=== PATIENT | male | born 1990 | race African-American/Black ===

== ENCOUNTER 2021-02-20 06:58 | Outpatient (REF) | payer BC, SELFPAY | END 2021-02-20 06:59 | disposition home or self-care (01) | LOC: HO.LAB 06:58 | PROVIDERS: Visit Provider Internal Medicine | DX: Z20.822 Contact with and (suspected) exposure to COVID-19 (principal) | CPT/HCPCS: C9803; U0003; U0005 ==

== ENCOUNTER 2021-05-12 15:56 | Emergency (ER) | payer BC, SELFPAY ==
--- NOTE | ~2021-05-12 | CT_ITS ---
EXAMINATION: CT ABDOMEN AND PELVIS WITH CONTRAST CLINICAL INFORMATION: Epigastric pain. Vomiting. Elevated lipase. COMPARISON: 12/18/2013 TECHNIQUE: Multidetector volumetric images were obtained from the superior aspect of the liver through the pubic symphysis following administration 85 mL of Omnipaque 350 intravenous contrast. Sagittal and coronal reformatted images were obtained on the technologist's workstation. Oral contrast: No This CT examination was performed using dose optimization techniques as appropriate, variously including the following: *Automated exposure control *Adjustment of mA and/or kV according to patient size (this includes techniques or standardized protocols for targeted exams where dose is matched to indication/reason for exam; i.e. extremities or head) *Use of iterative reconstruction technique DLP: 412 mGy-cm FINDINGS: LUNG BASES: The visualized lung bases are unremarkable. LIVER, GALLBLADDER, AND BILIARY TREE: The liver is normal in size, shape, and attenuation. No focal hepatic lesion or biliary ductal dilatation is present. The gallbladder is unremarkable with no evidence of radiopaque gallstones, gallbladder wall thickening, or obvious pericholecystic inflammatory changes. PANCREAS: Unremarkable. SPLEEN: Unremarkable. ADRENAL GLANDS: Unremarkable. KIDNEYS AND URETERS: The kidneys are normal in size, shape, and attenuation. No hydronephrosis, hydroureter, or calculi seen. No perinephric stranding. BLADDER: Unremarkable. GASTROINTESTINAL TRACT: The small and large bowel are unremarkable. The appendix is unremarkable. ABDOMINAL WALL: No significant hernia is appreciated. LYMPH NODES: Normal. VASCULAR: Normal caliber aorta. Circumaortic left renal vein. PELVIC VISCERA: The prostate and seminal vesicles are unremarkable. OSSEOUS STRUCTURES: Unremarkable. CT/CT abdomen pelvis w con IMPRESSION: No acute findings of the abdomen or pelvis. No obstruction. No inflammatory changes. Normal appearance of the pancreas. Fleischner guidelines were followed.
[2021-05-12 16:45] VITALS: BP 124/85; PULSE 110; RESP 18; TEMP 36.9; O2SAT 99; BMI 23.4
[2021-05-12] MEDS: Ondansetron ODT 4 MG TAB.RAPDIS TRANSLINGU (16:50)
[2021-05-12 23:39] LABS: MANUAL DIFF FLAG NO
[2021-05-12 23:40] LABS: Basophils Percent Auto 0.1 % (0-2); Hematocrit 42.5 % (42.0-52.0); Hemoglobin 14.9 g/dl (14.0-18.0); Imm Gran Abs Auto 0.07 X10*3/uL (0.00-0.03); Imm Gran Pct Auto 0.4 % (0.0-0.4); Lymphocytes Percent Auto 6.2 % (20-40); Mean Corpuscular HGB Conc 35.1 g/dl (31.0-36.0); Mean Corpuscular Hemoglobin 27.7 pg (27.0-33.0); Mean Corpuscular Volume 79.1 fL (80.0-98.0); Mean Platelet Volume 11.4 fL (9.4-12.4); Monocytes Absolute Auto 0.8 X10*3/uL (0.1-1.2); Monocytes Percent Auto 4.7 % (2-11); Neutrophils Absolute Auto 14.4 x10*3/uL (2.0-8.3); Neutrophils Percent Auto 88.6 % (45-73); Platelet Count 204 X10*3/uL (160-400); Red Blood Count 5.37 X10*6/uL (4.60-5.80); Red Cell Distribution Width 13.2 % (11.0-16.0); White Blood Count 16.2 X10*3/uL (4.8-10.8)
[2021-05-13] LABS: Alanine Aminotransferase 14 U/L (0-40); Albumin Level 5.3 g/dL (3.5-5.0); Alkaline Phosphatase 69 U/L (39-117); Anion Gap 20 (12-20); Aspartate Amino Transferase 18 U/L (5-37); Bilirubin Direct 0.4 mg/dL (0.0-0.5); Bilirubin Total 1.1 mg/dL (0.0-1.0); Blood Urea Nitrogen 18 mg/dL (9-16); Calcium 10.6 mg/dL (8.4-10.2); Carbon Dioxide 24 mmol/L (22-29); Chloride 98 mmol/L (96-108); Creatinine Clr Calc Pharmacy 90.2; Estimated Glomerular Filt Rate > 60; Glucose Random 141 mg/dL (60-115); Lipase 136 U/L (8-78); Potassium 3.6 mmol/L (3.3-5.1); Sodium 138 mmol/L (135-145); Total Protein 8.4 g/dL (6.5-8.0)
--- NOTE | 2021-05-13 00:03 | PC.NURSE ---
Addendum entered by Elizabeth Kramer 05/13/21 00:03: No relief with Zofran. Original Note: Pt vomiting continuously in Triage, large amounts of emesis noted.
[2021-05-13 00:10] VITALS: BP 154/98; PULSE 92; RESP 14; TEMP 37.2; O2SAT 99
--- NOTE | 2021-05-13 00:40 | ED.NAVMDI ---
HPI - Nausea/Vomiting/Diarrhea General Chief complaint: Nausea/Vomiting/Diarrhea Stated complaint: vomiting Time Seen by Provider: 05/13/21 00:07 Source: patient Mode of arrival: ambulatory Limitations: no limitations History of Present Illness MD elicited complaint: nausea, vomiting and abdominal pain Pertinent past history: other (gastritis vomiting daily) Onset (ago): day(s) (yesterday ) Description of vomiting: watery, bilious and blood-streaked Associated nausea: Yes Associated abdominal pain: Yes Location of pain: epigastric Pain consistency: constant Severity: severe Quality: stabbing Exacerbating factors: eating and movement Relieving factors: none Context: other (hx of severe GERD, vomits in the AM frequently takes OTC PPI, drank 2 drinks only yesterday vomiting ever since) Associated symptoms: loss of appetite, malaise, nausea/vomiting, weakness and other (noted blood in vomit no clots since vomiting so many times) Related Data Allergies Allergy/AdvReac Type Severity Reaction Status Date / Time No Known Allergies Allergy Verified 05/12/21 16:44 Review of Systems Review of Systems: Constitutional : No Weight loss, No Fever, No Chills ENT/Mouth : No sore throat, No Rhinorrhea Eyes: No Swelling, No Redness Cardiovascular : No Chest Pain, No SOB, NoEdema Respiratory : No Cough, No Sputum, No Wheezing Gastrointestinal : Positive Nausea, Positive Vomiting, no Diarrhea, positive abdominal Pain, No Hematochezia, No Melena Genitourinary : No Dysuria, No Urinary Frequency, No Hematuria, No Urgency Musculoskeletal : No joint pain, No Myalgias, No Joint Swelling Skin : No Skin Lesions, No rash Neuro : pos Weakness, No Numbness, No Dizziness, No Headache Psych : No Anxiety/Panic, No Depression Heme/Lymph: No Bruising, No Lymphadenopathy Endocrine : No Polyuria, No Polydipsia All other systems reviewed and are negative. Gastrointestinal: Gastrointestinal: Reports nausea PMFSH Past Medical History Attestation statement: The following information was validated with the patient. Medical History Gastritis GERD (gastroesophageal reflux disease) Vomiting Social History Social History (Updated 05/13/21 @ 00:44 by Juju Heath DO) Alcohol intake: current Patient Tobacco Use Status: Never used Tobacco Substance Use Type: Marijuana Advance Directives: No Physical Exam Vital Signs: Vital Signs: Last Vital Signs Temp 99.0 F 05/13/21 00:10 Pulse 93 05/13/21 02:19 Resp 18 05/13/21 02:19 BP 119/68 05/13/21 02:19 Pulse Ox 100 05/13/21 02:19 BMI result Body Mass Index 23.4 Appearance: Alert. Oriented X3. in pain active vomiting blood tinged sputum mild acute distress. Eyes: Pupils equal, round and reactive to light. ENT: Pharynx dry MM Neck: Normal inspection. Neck supple. CVS: Normal heart rate and rhythm. Pulses normal. Respiratory: No respiratory distress. Breath sounds normal. Abdomen: Soft and moderate epigastric ttp Skin: Skin warm and dry. pale skin color. Normal skin turgor. Extremities: No lower extremity edema. No calf ttp Neuro: Oriented X 3. No motor deficit. No sensory deficit. Course Course Course Narrative: no further vomiting, repeat CBC ordered, no pancreatitis - signed out to [facility] pending repeat CBC MDM - Nausea/Vomiting/Diarrhea MDM Narrative Medical decision making narrative: 30 yo male with hx of GERD and gastritis not well controlled at home and has not had endoscopy in the past has frequent issues if he eats any spicy foods or ETOH had two drinks yesterday started to vomit and now had blood streaked emesis no black stools - will obtain labs, give IVF x 2L, zofran, IV protonix, CT scan given elevated lipase - suspect hemorrhagic gastritis vs MW tear. Dispo per results and improvement Lab Data Result diagrams: 05/12/21 23:33 05/12/21 23:33 Labs: Lab Results 05/12/21 05/12/21 05/13/21 Range/Units 23:33 23:33 00:35 WBC 16.2 H (4.8-10.8) X10*3/uL RBC 5.37 (4.60-5.80) X10*6/uL Hgb 14.9 (14.0-18.0) g/dl Hct 42.5 (42.0-52.0) % MCV 79.1 L (80.0-98.0) fL MCH 27.7 (27.0-33.0) pg MCHC 35.1 (31.0-36.0) g/dl RDW 13.2 (11.0-16.0) % Plt Count 204 (160-400) X10*3/uL MPV 11.4 (9.4-12.4) fL Immature Gran % (Auto) 0.4 (0.0-0.4) % Neut % (Auto) 88.6 H (45-73) % Lymph % (Auto) 6.2 L (20-40) % Jennings % (Auto) 4.7 (2-11) % Eos % (Auto) 0.0 (0-4) % Baso % (Auto) 0.1 (0-2) % Lymph # (Auto) 1.0 L (1.2-4.9) X10*3/uL Jennings # (Auto) 0.8 (0.1-1.2) X10*3/uL Eos # (Auto) 0.0 (0.0-0.4) X10*3/uL Baso # (Auto) 0.0 (0.0-0.2) X10*3/uL Abs Immat Gran (auto) 0.07 H (0.00-0.03) X10*3/uL Absolute Neuts (auto) 14.4 H (2.0-8.3) x10*3/uL Absolute Nucleated RBC 0.000 (0.0-0.012) X10*3/uL Nucleated RBC % (auto) 0.0 (0.0-0.2) /100WBC Sodium 138 (135-145) mmol/L Potassium 3.6 (3.3-5.1) mmol/L Chloride 98 (96-108) mmol/L Carbon Dioxide 24 (22-29) mmol/L Anion Gap 20 (12-20) BUN 18 H (9-16) mg/dL Creatinine 1.06 (0.5-1.4) mg/dL Estim Creat Clear Calc 90.2 Estimated GFR > 60 Random Glucose 141 H (60-115) mg/dL Lactic Acid 1.4 (0.5-2.0) mmol/L Calcium 10.6 H (8.4-10.2) mg/dL Total Bilirubin 1.1 H (0.0-1.0) mg/dL Direct Bilirubin 0.4 (0.0-0.5) mg/dL AST 18 (5-37) U/L ALT 14 (0-40) U/L Alkaline Phosphatase 69 (39-117) U/L Total Protein 8.4 H (6.5-8.0) g/dL Albumin 5.3 H (3.5-5.0) g/dL Lipase 136 H (8-78) U/L COVID-19 ([facility]) (Negative) COVID-19 Clin Com 05/13/21 Range/Units 00:35 WBC (4.8-10.8) X10*3/uL RBC (4.60-5.80) X10*6/uL Hgb (14.0-18.0) g/dl Hct (42.0-52.0) % MCV (80.0-98.0) fL MCH (27.0-33.0) pg MCHC (31.0-36.0) g/dl RDW (11.0-16.0) % Plt Count (160-400) X10*3/uL MPV (9.4-12.4) fL Immature Gran % (Auto) (0.0-0.4) % Neut % (Auto) (45-73) % Lymph % (Auto) (20-40) % Jennings % (Auto) (2-11) % Eos % (Auto) (0-4) % Baso % (Auto) (0-2) % Lymph # (Auto) (1.2-4.9) X10*3/uL Jennings # (Auto) (0.1-1.2) X10*3/uL Eos # (Auto) (0.0-0.4) X10*3/uL Baso # (Auto) (0.0-0.2) X10*3/uL Abs Immat Gran (auto) (0.00-0.03) X10*3/uL Absolute Neuts (auto) (2.0-8.3) x10*3/uL Absolute Nucleated RBC (0.0-0.012) X10*3/uL Nucleated RBC % (auto) (0.0-0.2) /100WBC Sodium (135-145) mmol/L Potassium (3.3-5.1) mmol/L Chloride (96-108) mmol/L Carbon Dioxide (22-29) mmol/L Anion Gap (12-20) BUN (9-16) mg/dL Creatinine (0.5-1.4) mg/dL Estim Creat Clear Calc Estimated GFR Random Glucose (60-115) mg/dL Lactic Acid (0.5-2.0) mmol/L Calcium (8.4-10.2) mg/dL Total Bilirubin (0.0-1.0) mg/dL Direct Bilirubin (0.0-0.5) mg/dL AST (5-37) U/L ALT (0-40) U/L Alkaline Phosphatase (39-117) U/L Total Protein (6.5-8.0) g/dL Albumin (3.5-5.0) g/dL Lipase (8-78) U/L COVID-19 ([facility]) Negative (Negative) COVID-19 Clin Com See Note Discharge Plan Discharge Clinical Impression: Vomiting, Acute gastritis with bleeding, Leukocytosis Patient Disposition: Still a Patient
[2021-05-13] MEDS: Pantoprazole Sodium 40 MG/10 ML VIAL IVPUSH (00:42)
[2021-05-13] MEDS: ondansetron HCL 4 MG/2 ML VIAL IVPUSH (00:42)
[2021-05-13] MEDS: LORazepam 2 MG/ML VIAL 1 MG IVPUSH (00:42)
[2021-05-13] MEDS: diphenhydrAMINE HCL 50 MG/ML VIAL 25 MG IVPUSH (00:43)
[2021-05-13] MEDS: 0.9 % Sodium Chloride 1,000 ML 999 ML IVCONT ×2 (00:53)
[2021-05-13 00:56] LABS: Lactic Acid 1.4 mmol/L (0.5-2.0)
[2021-05-13 01:03] LABS: COVID-19 Test Negative (Negative)
[2021-05-13] MEDS: iohexoL 350 MG/ML 100 ML INFUS..BTL 85 ML IV (01:48)
[2021-05-13 02:19] VITALS: BP 119/68; PULSE 93; RESP 18; O2SAT 100
[2021-05-13 02:59] LABS: Hematocrit 37.9 % (42.0-52.0); Hemoglobin 12.9 g/dl (14.0-18.0); Mean Corpuscular Hemoglobin 27.3 pg (27.0-33.0); Mean Corpuscular Volume 80.1 fL (80.0-98.0); Mean Platelet Volume 11.2 fL (9.4-12.4); Platelet Count 161 X10*3/uL (160-400); Red Blood Count 4.73 X10*6/uL (4.60-5.80); Red Cell Distribution Width 13.3 % (11.0-16.0); White Blood Count 14.6 X10*3/uL (4.8-10.8)
[2021-05-13 04:16] VITALS: BP 129/85; PULSE 87; RESP 18; O2SAT 97
--- NOTE | 2021-05-13 04:22 | PC.NURSE ---
Pt assisted into room 4, ambulating with a steady gait. IV established, pt assisted into POC awaiting primary MD chávez.
--- NOTE | 2021-05-13 05:01 | PC.NURSE ---
Repeat labs obtained and sent. Pt sleeping in bed @ this time. VSS.
[2021-05-13 05:03] LABS: Basophils Percent Auto 0.1 % (0-2); Hematocrit 38.5 % (42.0-52.0); Hemoglobin 13.1 g/dl (14.0-18.0); Imm Gran Abs Auto 0.05 X10*3/uL (0.00-0.03); Imm Gran Pct Auto 0.3 % (0.0-0.4); Lymphocytes Absolute Auto 1.5 X10*3/uL (1.2-4.9); Lymphocytes Percent Auto 10.3 % (20-40); MANUAL DIFF FLAG NO; Mean Corpuscular Hemoglobin 27.3 pg (27.0-33.0); Mean Corpuscular Volume 80.4 fL (80.0-98.0); Mean Platelet Volume 11.2 fL (9.4-12.4); Monocytes Percent Auto 6.6 % (2-11); Neutrophils Absolute Auto 11.9 x10*3/uL (2.0-8.3); Neutrophils Percent Auto 82.7 % (45-73); Platelet Count 176 X10*3/uL (160-400); Red Blood Count 4.79 X10*6/uL (4.60-5.80); Red Cell Distribution Width 13.3 % (11.0-16.0); White Blood Count 14.3 X10*3/uL (4.8-10.8)
[2021-05-13 05:53] VITALS: BP 135/89; PULSE 102; RESP 18; TEMP 37; O2SAT 99
== END 2021-05-13 06:03 | disposition home or self-care (01) ==
PROVIDERS: Student in an Organized Health Care Education/Training Program; Emergency Provider Emergency Medicine
DX: K29.01 Acute gastritis with bleeding (principal); R11.2 Nausea with vomiting, unspecified; D72.829 Elevated white blood cell count, unspecified; K21.9 Gastro-esophageal reflux disease without esophagitis; F12.90 Cannabis use, unspecified, uncomplicated; Z20.822 Contact with and (suspected) exposure to COVID-19
CPT/HCPCS: 36415; 74177; 80048; 80076; 83605; 83690; 85025; 85027; 87635; 96361; 96374; 96375; 99284; J1200; J2060; J2405; Q9967

== ENCOUNTER → 2021-05-14 08:26 | Outpatient (BNVA) | payer BC, SELFPAY | PROVIDERS: Visit Provider Nurse Practitioner Family | DX: K21.9 Gastro-esophageal reflux disease without esophagitis (principal); R11.2 Nausea with vomiting, unspecified; K85.90 Acute pancreatitis without necrosis or infection, unspecified; K85.20 Alcohol induced acute pancreatitis without necrosis or infection; R19.7 Diarrhea, unspecified | CPT/HCPCS: 99202 ==

== ENCOUNTER 2021-05-14 16:13 | Outpatient (REF) | payer BC, SELFPAY ==
[2021-05-15 11:30] LABS: H Pylori Breath Test Negative (Negative)
== END 2021-05-14 16:14 | disposition home or self-care (01) ==
LOC: HO.LNP 16:13
PROVIDERS: Visit Provider Nurse Practitioner Family
DX: K29.71 Gastritis, unspecified, with bleeding (principal); R11.10 Vomiting, unspecified
CPT/HCPCS: 83013

== ENCOUNTER 2021-05-16 13:48 | Day surgery (SDC) | payer BC, SELFPAY ==
--- NOTE | 2021-05-15 10:44 | HO.ANESPROP2 ---
Documented by User: Dione Bass NP 05/15/21 10:45 HPI - Anesthesia Eval Consult details Narrative: 30yo M for Upper Endoscopy [facility] Past Medical History Medical History Gastritis GERD (gastroesophageal reflux disease) Vomiting Social History Social History Alcohol intake: current Patient Tobacco Use Status: Never used Tobacco Second Hand Smoke Exposure: No Use of substances other than those prescribed or required for medical reasons: Yes Substance Use Type: Marijuana Substance Use Frequency: Daily Are you DNR?: No Advance Directives: No Advance Directives Information Provided: Yes Advance Directives on File: No Meds Allergies Allergy/AdvReac Type Severity Reaction Status Date / Time No Known Allergies Allergy Verified 05/14/21 08:32 Exam Exam Date and Time: May 15, 2021 1044 Pertinent Lab Results Pertinent Lab Results: Laboratory Tests 05/12/21 05/13/21 23:33 04:59 WBC 14.3 H Hgb 13.1 L Hct 38.5 L Plt Count 176 Sodium 138 Potassium 3.6 Chloride 98 Carbon Dioxide 24 BUN 18 H Creatinine 1.06 Assessment and Plan Assessment Anesthesia Assessment: Chart Reviewed Documented by User: Marylin Hamm MD 05/16/21 14:17 [facility] Past Medical History Medical History Gastritis GERD (gastroesophageal reflux disease) Vomiting Functional capacity: independent ambulation Family History Family history of problems with anesthesia: No Surgical History History of Problems with Anesthesia: No Social History Social History Alcohol intake: current Patient Tobacco Use Status: Never used Tobacco Second Hand Smoke Exposure: No Use of substances other than those prescribed or required for medical reasons: Yes Substance Use Type: Marijuana Substance Use Frequency: Daily Are you DNR?: No Advance Directives: No Advance Directives Information Provided: Yes Advance Directives on File: No Meds Allergies Allergy/AdvReac Type Severity Reaction Status Date / Time No Known Allergies Allergy Verified 05/14/21 08:32 Exam Airway Mallampati Class: II TM Dist: >3cm Neck ROM: Full Heart: RRR Lungs: CTA Assessment and Plan Final Anesthetic Review Family History of Problems with Anesthesia: No History of Problems with Anesthesia: No ASA Class: II Final Preanesthetic Review: No Changes in Pt Med Stat, Meds/Allgs Chart Reviewed, Consent Obtained/Reviewed and Anes Risks/Benef Reviewed Patient Risk: Low Procedure Risk: Low Anesthetic Plan Anesthetic Plan: MAC: Disposition: Standard PACU
[2021-05-16 14:05] VITALS: BMI 23.1
--- NOTE | 2021-05-16 14:12 | MHC.SHP ---
Pre-Procedural Eval Section A Date of Service: 05/16/21 Section B Chief Complaint: acute pancreatitis,reflux disease Relevant Family History (Specify if Yes): No Relevant Social History: Other (specify) (THC use) Present Medications: see Short Stay Collaborative assessment Medical History: Significant History (H/O pyloroplasty H/O vagotomy History of esophagogastroduodenoscopy (EGD) Hx of arthroscopic knee surgery Hx of cholecystectomy Hx of colonoscopy Hx of hysterectomy) History of Previous Operations: No relevant previous surgery Allergies: Allergies Allergy/AdvReac Type Severity Reaction Status Date / Time No Known Allergies Allergy Verified 05/14/21 08:32 Review of Systems Sugical H&P ROS: Negative: Constitution, Cardiovascular, Respiratory, Neurological, Psychiatric, Hem-Onc, Allergic/Immunologic, Gastrointestinal, Genitourinary, Musculoskeletal, Integumentary, Endocrine and Eyes/Ears/Nose/Throat Exam Surgical H&P Exam: Normal: HEENT, Normal: Heart, Normal: Lungs, Normal: Extremities, Normal: Abdomen, Normal: Skin and Normal: Neurological Plan Diagnosis/Plan: Unchanged I have reviewed the history and physical and performed a pertinent physical examination on my patient. No changes have occurred unless specified.
[2021-05-16 14:17] VITALS: BP 154/98; PULSE 72; RESP 18; TEMP 36.9; O2SAT 98
[2021-05-16] MEDS: Lactated Ringers 1,000 ML 100 ML IVCONT (14:32)
--- NOTE | 2021-05-16 15:52 | PM.OP ---
Brief Operative Note Date of Service: 05/16/21 Pre-op diagnosis: epigastric pain Post-op diagnosis: same Procedure: see op note Surgeon: Sarita Barrera MD Anesthesia: MAC Was an Learning Support Services Director used for this Procedure?: No Estimated blood loss (mL): 0 Condition: stable Disposition: PACU
--- NOTE | 2021-05-16 15:52 | W.PM.OPN ---
Operative Note Operative Note Date of Service: 05/16/21 Narrative: Procedure Description: EGD FLEXIBLE TRANSORAL UPPER GASTROINTESTINAL ENDOSCOPY UPPER ENDOSCOPY Consent: Indications for the procedure and potential complications of bleeding, perforation, reaction to medications and missed diagnosis were discussed with the patient and informed consent was obtained. Instrument: Olympus GIF H 190 J mid size upper endoscope Monitoring: Vital signs and clinical assessment, continuous EKG monitoring, Pulse oximetry, Carbon Dioxide monitoring and blood pressure monitoring were done throughout the procedure. Procedure: The patient was placed in the left lateral decubitis position and pre-procedure medications were administered and a bite block was placed. The endoscope was inserted into the mouth and advanced under direct vision to the third part of duodenum. A careful inspection was made as the upper endoscope was withdrawn including a retroflexed examination of the proximal stomach; Findings and interventions are described below. Findings: Larynx:normal Esophagus: GE junction at 40 cm, diaphragm hiatus at 40 cm, LA grade D esophagitis noted with erosions and streaky erythema in distal esophagus with macerated tissue Stomach: Patchy gastric erythema. Biopsies were obtained. Grade 2 flap valve on retroflexed examination of the cardia. Duodenum: Normal bulb and descending duodenum, bx taken Intervention: Biopsies as noted above Impression/Findings: erosive esophagitis, LA grade D PLAN: omeprazole 40 mg bID carafate for 4 weeks repeat EGD in 3-6 months
--- NOTE | 2021-05-16 16:02 | HO.POSTANES ---
Post Anesthesia Evaluation Post Anesthesia Evaluation Vital Signs: Vital Signs Temp Pulse Resp BP Pulse Ox 05/16/21 14:17 98.5 F 72 18 154/98 H 98 Anesthesia: Monitored Mental Status: Awake Pain Control: Satisfactory Nausea/Vomiting: None Hydration: Adequate Anesthesia-Related Issues: No Anes. Related Issues
[2021-05-16 16:06] VITALS: BP 139/93; PULSE 113; RESP 16; TEMP 36.6; O2SAT 97
[2021-05-16 16:21] VITALS: BP 145/101; PULSE 71; RESP 16; TEMP 36.2; O2SAT 100
== END 2021-05-16 16:45 | disposition home or self-care (01) ==
PROVIDERS: Visit Provider Internal Medicine Gastroenterology
PROC: 0DJ08ZZ Inspection of Upper Intestinal Tract, Via Natural or Artificial Opening Endoscopic (ICD-10-PCS; CPT 43235; principal; 2021-05-16 15:00)
DX: K85.90 Acute pancreatitis without necrosis or infection, unspecified (principal); K21.9 Gastro-esophageal reflux disease without esophagitis; K20.80 Other esophagitis without bleeding; K29.50 Unspecified chronic gastritis without bleeding; D72.829 Elevated white blood cell count, unspecified; K44.9 Diaphragmatic hernia without obstruction or gangrene; Z90.49 Acquired absence of other specified parts of digestive tract; F12.90 Cannabis use, unspecified, uncomplicated
CPT/HCPCS: 43239; 88305; 88342

== ENCOUNTER → 2021-05-28 15:05 | Outpatient (BNVA) | payer BC, SELFPAY | PROVIDERS: PCP Nurse Practitioner Family; Visit Provider Nurse Practitioner Family | DX: Z13.89 Encounter for screening for other disorder (principal) ==

== ENCOUNTER 2021-07-06 09:35 | Outpatient (REF) | payer BC, SELFPAY ==
[2021-07-06 10:45] LABS: Alanine Aminotransferase 23 U/L (0-40); Albumin Level 4.5 g/dL (3.5-5.0); Alkaline Phosphatase 62 U/L (39-117); Anion Gap 13 (12-20); Aspartate Amino Transferase 20 U/L (5-37); Bilirubin Total 0.5 mg/dL (0.0-1.0); Blood Urea Nitrogen 9 mg/dL (9-16); Calcium 9.8 mg/dL (8.4-10.2); Carbon Dioxide 25 mmol/L (22-29); Chloride 106 mmol/L (96-108); Estimated Glomerular Filt Rate > 60; Glucose Fasting 92 mg/dL (60-99); Potassium 4.6 mmol/L (3.3-5.1); Sodium 139 mmol/L (135-145); Total Protein 7.3 g/dL (6.5-8.0)
[2021-07-06 11:08] LABS: TSH reflex Free T4 1.96 uIU/mL (0.32-4.0)
[2021-07-08 08:20] LABS: Folate 12.5 ng/mL (> or = 4.0); Vitamin B12 284 pg/mL (200-900)
== END 2021-07-06 09:36 | disposition home or self-care (01) ==
LOC: HO.LAB 09:35
PROVIDERS: PCP Nurse Practitioner Family; Visit Provider Nurse Practitioner Family
DX: Z13.29 Encounter for screening for other suspected endocrine disorder (principal); K21.9 Gastro-esophageal reflux disease without esophagitis
CPT/HCPCS: 36415; 80053; 82306; 82607; 82746; 84443

== ENCOUNTER 2021-09-24 16:00 | Outpatient (RCR) | payer BC, SELFPAY ==
--- NOTE | 2021-09-06 15:37 | MHC.PT.EP ---
[facility] [place] Office [place] Office [place] Office [address] Jarvis Gaines [address] [phone] F: [phone] F: [phone] F: [phone] F: [phone] Physical Therapy Plan of Care Date of Evaluation: Date of Surgery: N/A Diagnosis: low back pain (RC) Assessment: pt is a 30 y/o male w/ signs and symptoms consistent of SI dysfunction. pt presents to physical therapy with pain, decreased range of motion, decreased strength, impaired functional mobility, impaired postural awareness, and gait deviations. pt is a good candidate for skilled PT due to age, potential remediation of impairments, typical disease/condition progression and prognosis, comorbidities, and motivation. pt would benefit from tailored strengthening and stretching exercise program, functional training, gait training, postural re-training, neuromuscular re-education, modalities as needed for pain, equipment safety demonstration. Frequency and Duration: The patient will be seen 2x/wk for 5 wks Short Term Goals: pt will be I w/ HEP to promote self-management of condition. pt will demo proper sitting posture w/ lumbar roll to promote neutral spine w/ seated ADLs. Usp Goals: pt will improve lumbar flexion by 20% to improve ease w/ lower body dressing. pt will demo proper lifting mechanics of 25# x5 reps w/o verbal cueing to promote return to functional lifting. Treatment Plan: Modalities to reduce pain, spasms and effusion. Manual therapy to restore motion and function. Therapeutic exercise to improve strength and flexibility. Neuromuscular re-education for posture and balance. Therapeutic activities to return to functional activities of daily living. Electronically signed by: Michelle Jaeger PT, DPT Please sign and return to therapist. Thank you for your referral.
== END 2021-10-01 16:46 | disposition home or self-care (01) ==
LOC: HO.PT 16:00
PROVIDERS: PCP Nurse Practitioner Family; Visit Provider Nurse Practitioner Family
DX: M54.50 Low back pain, unspecified (principal)
CPT/HCPCS: 97110; 97112; 97162

== ENCOUNTER → 2022-02-18 13:14 | Outpatient (BNVA) | payer BC, SELFPAY | PROVIDERS: PCP Nurse Practitioner Family; Visit Provider Nurse Practitioner Family | DX: K21.9 Gastro-esophageal reflux disease without esophagitis (principal) ==

== ENCOUNTER 2022-03-27 10:49 | Day surgery (SDC) | payer BC, SELFPAY ==
[2022-03-21 12:14] VITALS: BMI 25.0
--- NOTE | 2022-03-27 11:56 | MHC.SHP ---
Pre-Procedural Eval Section A Date of Service: 03/27/22 Section B Chief Complaint: reflux Relevant Family History (Specify if Yes): No Relevant Social History: Other (specify) (THC) Present Medications: see Short Stay Collaborative assessment Medical History: Significant History (Gastritis GERD (gastroesophageal reflux disease) Vomiting) History of Previous Operations: No relevant previous surgery Allergies: Allergies Allergy/AdvReac Type Severity Reaction Status Date / Time No Known Allergies Allergy Verified 02/18/22 13:23 Review of Systems Sugical H&P ROS: Negative: Constitution, Cardiovascular, Respiratory, Neurological, Psychiatric, Hem-Onc, Allergic/Immunologic, Gastrointestinal, Genitourinary, Musculoskeletal, Integumentary, Endocrine and Eyes/Ears/Nose/Throat Exam Surgical H&P Exam: Normal: HEENT, Normal: Heart, Normal: Lungs, Normal: Extremities, Normal: Abdomen, Normal: Skin and Normal: Neurological Plan Diagnosis/Plan: Unchanged I have reviewed the history and physical and performed a pertinent physical examination on my patient. No changes have occurred unless specified. Time Spent With Patient Time: Total time managing care of this patient today ____ minutes.
[2022-03-27 12:09] VITALS: BP 130/87; PULSE 83; RESP 16; TEMP 36.8; O2SAT 99
[2022-03-27] MEDS: Lactated Ringers 1,000 ML 50 ML IVCONT (12:16)
--- NOTE | 2022-03-27 12:45 | HO.ANESPROP2 ---
HPI - Anesthesia Eval Consult details Narrative: egd [facility] Active Problems Active Problems: All Active Problems (Updated 03/21/22 @ 12:00 by Nava Moise RN) Gastroesophageal reflux disease (Acute) Screening for hypothyroidism (Acute) Screening for diabetes mellitus (Acute) Encounter to establish care (Acute) Low vitamin D level (Acute) Physical exam (Acute) Low back pain (Acute) Nausea and vomiting (Acute) Past Medical History Medical History (Updated 03/21/22 @ 12:00 by Nava Moise RN) Gastritis GERD (gastroesophageal reflux disease) History of COVID-19 Vomiting Family History Family History Father No problems noted. Mother GERD (gastroesophageal reflux disease) Family history of problems with anesthesia: No Surgical History Surgical History History of esophagogastroduodenoscopy (EGD) History of Problems with Anesthesia: No Social History Social History Housing: Apartment Alcohol intake: current Alcohol intake frequency: does not drink Patient Tobacco Use Status: Never used Tobacco e-Cigarette/Vaping Use: Former Use Second Hand Smoke Exposure: No Use of substances other than those prescribed or required for medical reasons: Yes Substance Use Type: Marijuana Substance Use Frequency: Occasionally Are you DNR?: No Advance Directives: No Advance Directives Information Provided: Yes Advance Directives on File: No Current occupational status: employed Cognitive needs: No Hearing needs: No Vision needs: No Meds Allergies Allergy/AdvReac Type Severity Reaction Status Date / Time No Known Allergies Allergy Verified 02/18/22 13:23 Active Medications: Current Medications Lactated Ringer's (Lr) 1,000 mls @ 50 mls/hr IVCONT .Q20H LIAM Last Admin: 03/27/22 12:16 Dose: 50 mls/hr Exam Exam Date and Time: March 27, 2022 1245 Height,Weight and Vital Signs: Height 5 ft 6 in Weight 70.2 kg Last Vital Signs Temp 98.2 F 03/27/22 12:09 Pulse 83 03/27/22 12:09 Resp 16 03/27/22 12:09 BP 130/87 03/27/22 12:09 Pulse Ox 99 03/27/22 12:09 O2 Del Method 03/27/22 12:09 Airway Mallampati Class: II TM Dist: >3cm Neck ROM: Full Heart: rrr Lungs: cta Assessment and Plan Final Anesthetic Review Family History of Problems with Anesthesia: No History of Problems with Anesthesia: No ASA Class: II Final Preanesthetic Review: No Changes in Pt Med Stat, Meds/Allgs Chart Reviewed, Consent Obtained/Reviewed and Anes Risks/Benef Reviewed Patient Risk: Low Procedure Risk: Low Anesthetic Plan Anesthetic Plan: Agree w/ Assess. and Plan Disposition: Standard PACU
--- NOTE | 2022-03-27 13:11 | W.PM.OPN ---
Operative Note Operative Note Date of Service: 03/27/22 Narrative: Procedure Description: EGD Indication: gerd Anesthesia: MAC FLEXIBLE TRANSORAL UPPER GASTROINTESTINAL ENDOSCOPY UPPER ENDOSCOPY Consent: Indications for the procedure and potential complications of bleeding, perforation, reaction to medications and missed diagnosis were discussed with the patient and informed consent was obtained. Instrument: Olympus GIF H 190 J mid size upper endoscope Monitoring: Vital signs and clinical assessment, continuous EKG monitoring, Pulse oximetry, Carbon Dioxide monitoring and blood pressure monitoring were done throughout the procedure. Procedure: The patient was placed in the left lateral decubitis position and pre-procedure medications were administered and a bite block was placed. The endoscope was inserted into the mouth and advanced under direct vision to the third part of duodenum. A careful inspection was made as the upper endoscope was withdrawn including a retroflexed examination of the proximal stomach; Findings and interventions are described below. Findings: Larynx:normal Esophagus: GE junction at 35 cm, diaphragm hiatus at 38 cm, consistent with 3 cm sliding hiatal hernia, bx taken from GEJ, proximal and distal esophagus Stomach: Patchy gastric erythema. Biopsies were obtained. Grade 2 flap valve on retroflexed examination of the cardia. Duodenum: Normal bulb and descending duodenum, bx taken Intervention: Biopsies as noted above Impression/Findings: gastritis hiatal hernia PLAN: refluc precautions cont with PPI as helps if H pylori pos then treat
[2022-03-27 13:48] VITALS: BP 132/85; PULSE 111; RESP 16; TEMP 36.6; O2SAT 98
[2022-03-27 14:03] VITALS: BP 134/86; PULSE 78; RESP 16; O2SAT 98
[2022-03-27 14:18] VITALS: BP 136/92; PULSE 75; RESP 16; TEMP 36.8; O2SAT 100
[2022-03-27 14:33] VITALS: BP 142/91; PULSE 77; RESP 18; TEMP 36.4; O2SAT 97
[2022-03-27] MEDS: Mag&Al/Sim/Diphenhyd/Lidocaine 10 ML ORAL.SUSP PO (14:47)
== END 2022-03-27 15:02 | disposition home or self-care (01) ==
PROVIDERS: PCP Physician Assistant; Visit Provider Internal Medicine Gastroenterology
PROC: 0DJ08ZZ Inspection of Upper Intestinal Tract, Via Natural or Artificial Opening Endoscopic (ICD-10-PCS; CPT 43235; principal; 2022-03-27 11:50)
DX: K21.9 Gastro-esophageal reflux disease without esophagitis (principal); K44.9 Diaphragmatic hernia without obstruction or gangrene; K29.70 Gastritis, unspecified, without bleeding
CPT/HCPCS: 43239; 88305; 88342

== ENCOUNTER 2023-05-30 14:04 | Emergency (ER) | payer BC, MEDICAID, SELFPAY ==
[2023-05-30 14:36] VITALS: BP 157/99; PULSE 95; RESP 18; TEMP 37; O2SAT 99; BMI 22.9
--- NOTE | 2023-05-30 14:36 | ED.NAVMDI ---
HPI - Nausea/Vomiting/Diarrhea General Chief complaint: Abdominal Pain Stated complaint: Vomiting Time Seen by Provider: 05/30/23 17:46 Source: patient Mode of arrival: ambulatory Limitations: no limitations History of Present Illness HPI Narrative: 32 yo male presenting to the ER for evaluation of N/V/D and weakness for the last 5 days. No abdominal pain just soreness. No fevers. No known sick contacts. He reports upset stomach and some abdominal cramping before diarrhea but no focal abdominal pains. MD elicited complaint: nausea, vomiting and diarrhea Onset (ago): day(s) Description of vomiting: bilious Description of diarrhea: semi-solid Associated nausea: Yes Associated abdominal pain: No Location of pain: none Radiation: diffuse Pain consistency: intermittent Severity: mild Quality: cramping Exacerbating factors: eating Relieving factors: none Associated symptoms: myalgias, headaches, loss of appetite, malaise and nausea/vomiting Related Data Previous Rx's ?Medication ?Instructions ?Recorded omeprazole 40 mg capsule,delayed 40 mg PO BID #60 caps 06/10/22 release baclofen 10 mg tablet 10 mg PO DAILY 14 days #14 tabs 08/07/22 omeprazole 40 mg capsule,delayed 40 mg PO DAILY #14 caps 05/30/23 release ondansetron 4 mg disintegrating 4 mg PO Q8H PRN nausea and 05/30/23 tablet vomiting #7 tabs Allergies Allergy/AdvReac Type Severity Reaction Status Date / Time No Known Allergies Allergy Verified 05/30/23 14:38 Review of Systems Review of Systems: Yes all other systems are reviewed and are negative Gastrointestinal: Gastrointestinal: Reports nausea PMFSH Past Medical History Medical History Gastritis GERD (gastroesophageal reflux disease) History of COVID-19 Vomiting Surgical History History of esophagogastroduodenoscopy (EGD) Family History Family History Father No problems noted. Mother GERD (gastroesophageal reflux disease) Social History Social History (Updated 08/07/22 @ 13:37 by Sidney Roman PA-C) Housing: Apartment Alcohol intake: current Alcohol intake frequency: holidays/special occasions only Patient Tobacco Use Status: Never used Tobacco e-Cigarette/Vaping Use: Former Use Second Hand Smoke Exposure: No Substance Use Type: Marijuana Advance Directives: No Advance Directives Information Provided: Yes Current occupational status: employed Current occupation: [employer] Cognitive needs: No Hearing needs: No Vision needs: No Physical Exam Vital Signs: Vital Signs: Last Vital Signs Temp 96.6 F L 05/30/23 19:35 Pulse 81 05/30/23 19:35 Resp 18 05/30/23 19:35 BP 150/98 H 05/30/23 19:35 Pulse Ox 100 05/30/23 19:35 O2 Del Method Room Air 05/30/23 18:26 BMI result Body Mass Index 22.9 Appearance: Alert. Oriented X3. Pale Head: normocephalic, atraumatic. Eyes: Pupils equal, round and reactive to light. ENT: Pharynx normal. No tonsillar swelling or exudate. Neck: Normal inspection. Neck supple. CVS: Normal heart rate and rhythm. Pulses normal. Respiratory: No respiratory distress. Breath sounds normal. Abdomen: Soft and nontender. hyperactive +BS x4 Skin: Skin warm and dry. Normal skin color. Normal skin turgor. No rashes. Extremities: No lower extremity edema. No joint swelling. Neuro/psych: Oriented X 3. No motor deficit. No sensory deficit. CN II-XII intact. Normal speech and cognition. Course Course Course Narrative: This is a Rapid Medical Examination (RME) in triage, full HPI, ROS, assessment and plan per primary provider in the Main ED. 32 y/o male with GERD presents today for N/V/D and upper/ epigastric cramping abdominal pain for 5 days. No relief with omeprazole. Last vomited prior to arrival, bilious. Has episode of diarrhea yesterday with cramping pain. Overall, feeling fatigued weakness. In triage, appears uncomfortable and pale. Plan: JUAN DANIEL zofrmichael, labs, viral swabs Medications Administered Discontinued Medications Generic Name Dose Route Start Last Admin Trade Name Freq PRN Reason Stop Dose Admin Ondansetron HCl 4 mg 05/30/23 14:40 05/30/23 14:44 Ondansetron Odt 4 Mg Tab.Abraham GOMEZINGU 05/30/23 14:41 4 mg ONCE ONE Administration Ondansetron HCl 4 mg 05/30/23 19:31 05/30/23 19:33 Ondansetron Odt 4 Mg Tab.Abraham EPSTEIN 05/30/23 19:32 4 mg ONCE ONE Administration Medical Decision Making Medical Decision Making [facility] Narrative: 32 yo male presenting with several days of N/V/D, nonbloody vomitus and stools. No abdominal tenderness on examination. Lab workup is reassuring. No diarrhea since yesterday. Doubt acute bacterial infection such as C diff colitis. He was given SL zofran from triage and then able to tolerate pravin gustavo and crackers. Patient remained in the waiting room for several hours. He was reassessed. His VS remained stable and repeat abdominal exadmination revealed a nontender and nondistended abdomen. His most likely dx is acute gastroenteritis. He would like to go home. Will send home with zofran and PPI per request. He was given strict return precautions, comfortable w/ d/c home. Differential Diagnosis Differential Diagnoses: The differential diagnosis associated with the presentation includes gastroenteritis, pancreatitis, cholecystitis, GERD, gastritis, colitis Admission/Observation Consideration of admission/observation: Escalation of care including admission/observation considered Lab Data [facility] Lab Attestation statement: I reviewed the patient's lab results. no leukocytosis no significant electrolyte abnormality to suggest dehydration 05/30/23 15:02 05/30/23 15:02 Labs: Lab Results 05/30/23 05/30/23 Range/Units 15:02 18:17 WBC 9.5 (4.8-10.8) X10*3/uL RBC 5.65 (4.60-5.80) X10*6/uL Hgb 15.3 (14.0-18.0) g/dl Hct 43.0 (42.0-52.0) % MCV 76.1 L (80.0-98.0) fL MCH 27.1 (27.0-33.0) pg MCHC 35.6 (31.0-36.0) g/dl RDW 12.9 (11.0-16.0) % Plt Count 208 (160-400) X10*3/uL MPV 10.9 (9.4-12.4) fL Immature Gran % (Auto) 0.2 (0.0-0.4) % Neut % (Auto) 82.8 H (45-73) % Lymph % (Auto) 12.8 L (20-40) % Lares % (Auto) 3.9 (2-11) % Eos % (Auto) 0.1 (0-4) % Baso % (Auto) 0.2 (0-2) % Lymph # (Auto) 1.2 (1.2-4.9) X10*3/uL Lares # (Auto) 0.4 (0.1-1.2) X10*3/uL Eos # (Auto) 0.0 (0.0-0.4) X10*3/uL Baso # (Auto) 0.0 (0.0-0.2) X10*3/uL Abs Immat Gran (auto) 0.02 (0.00-0.03) X10*3/uL Absolute Neuts (auto) 7.8 (2.0-8.3) x10*3/uL Absolute Nucleated RBC 0.000 (0.0-0.012) X10*3/uL Nucleated RBC % (auto) 0.0 (0.0-0.2) /100WBC Sodium 137 (135-145) mmol/L Potassium 3.7 (3.3-5.1) mmol/L Chloride 104 (96-108) mmol/L Carbon Dioxide 26 (22-29) mmol/L Anion Gap 11 L (12-20) BUN 9 (9-16) mg/dL Creatinine 0.92 (0.5-1.4) mg/dL Estim Creat Clear Calc 102.0 Estimated GFR > 60 Random Glucose 108 (60-115) mg/dL Calcium 10.0 (8.4-10.2) mg/dL Magnesium 1.7 (1.6-2.6) mg/dL Total Bilirubin 1.1 H (0.0-1.0) mg/dL Direct Bilirubin 0.4 (0.0-0.5) mg/dL AST 14 (5-37) U/L ALT 10 (0-40) U/L Alkaline Phosphatase 76 (39-117) U/L Total Protein 8.3 H (6.5-8.0) g/dL Albumin 4.9 (3.5-5.0) g/dL Lipase 13 (8-78) U/L Influenza Type A (PCR) NEGATIVE (Negative) Influenza Type B (PCR) NEGATIVE (Negative) RSV RNA Qual (PCR) NEGATIVE (Negative) SARS-CoV-2 RNA (RT-PCR) NEGATIVE (Negative) External Record Review External record reviewed: Outpatient record and Prior outpatient labs Tests considered The following testing was considered but not selected: CT scan of the abdomen considered but serial abdominal examinations and lab workup were reassuring Prescription Management I considered prescription management with: Pain Medication and Antibiotic Critical Care Time Critical Care Time Critical Care Time: Yes Total Critical Care Time: 31 Attestation: I have personally provided critical care time exclusive of time spent on separately billable procedures. Time includes review of lab data, multiple re-evluations and assessments of response to treatments, and monitoring for potential decompensation. Intervention performed as documented. Discharge Plan Discharge Clinical Impression: Gastroenteritis Patient Disposition: Home, Self-Care Instructions: Gastroenteritis (DC) Additional Instructions: You lab workup today was unremarkable. You most likely have a viral GI bug also known as gastroenteritis. Treatment is supportive care, symptoms usually resolve on their own in 48-72 hours. Recommend rest and plenty of oral hydration. Stick to a bland diet like soup and toast while you are not feeling well. Take the prescribed medication as needed for nausea. Recommend over the counter Pepto Bismol or Imodium for upset stomach and diarrhea. Follow up with your doctor as needed. If you develop new or worsening symptoms call 911 or come back to the ER for further evaluation. Prescriptions: New ondansetron 4 mg tablet,disintegrating 4 mg PO Q8H PRN (Reason: nausea and vomiting) Qty: 7 0RF omeprazole 40 mg capsule,delayed release(DR/EC) 40 mg PO DAILY Qty: 14 0RF No Action omeprazole 40 mg capsule,delayed release(DR/EC) 40 mg PO BID Qty: 60 3RF baclofen 10 mg tablet 10 mg PO DAILY 14 Days Qty: 14 0RF Stand Alone Forms: Work/School Release Interventions: ED Discharge Assessment Last Done: 05/30/23 19:35 Discharge Date/Time: 05/30/23 19:36 Print Language: Latvian
[2023-05-30] MEDS: Ondansetron ODT 4 MG TAB.RAPDIS TRANSLINGU ×2 (14:44→19:33)
[2023-05-30 15:07] LABS: MANUAL DIFF FLAG NO
[2023-05-30 15:08] LABS: Basophils Percent Auto 0.2 % (0-2); Eosinophils Percent Auto 0.1 % (0-4); Hemoglobin 15.3 g/dl (14.0-18.0); Imm Gran Abs Auto 0.02 X10*3/uL (0.00-0.03); Imm Gran Pct Auto 0.2 % (0.0-0.4); Lymphocytes Absolute Auto 1.2 X10*3/uL (1.2-4.9); Lymphocytes Percent Auto 12.8 % (20-40); Mean Corpuscular HGB Conc 35.6 g/dl (31.0-36.0); Mean Corpuscular Hemoglobin 27.1 pg (27.0-33.0); Mean Corpuscular Volume 76.1 fL (80.0-98.0); Mean Platelet Volume 10.9 fL (9.4-12.4); Monocytes Absolute Auto 0.4 X10*3/uL (0.1-1.2); Monocytes Percent Auto 3.9 % (2-11); Neutrophils Absolute Auto 7.8 x10*3/uL (2.0-8.3); Neutrophils Percent Auto 82.8 % (45-73); Platelet Count 208 X10*3/uL (160-400); Red Blood Count 5.65 X10*6/uL (4.60-5.80); Red Cell Distribution Width 12.9 % (11.0-16.0); White Blood Count 9.5 X10*3/uL (4.8-10.8)
[2023-05-30 15:27] LABS: Alanine Aminotransferase 10 U/L (0-40); Albumin Level 4.9 g/dL (3.5-5.0); Alkaline Phosphatase 76 U/L (39-117); Anion Gap 11 (12-20); Aspartate Amino Transferase 14 U/L (5-37); Bilirubin Direct 0.4 mg/dL (0.0-0.5); Bilirubin Total 1.1 mg/dL (0.0-1.0); Blood Urea Nitrogen 9 mg/dL (9-16); Carbon Dioxide 26 mmol/L (22-29); Chloride 104 mmol/L (96-108); Estimated Glomerular Filt Rate > 60; Glucose Random 108 mg/dL (60-115); Lipase 13 U/L (8-78); Magnesium 1.7 mg/dL (1.6-2.6); Potassium 3.7 mmol/L (3.3-5.1); Sodium 137 mmol/L (135-145); Total Protein 8.3 g/dL (6.5-8.0)
[2023-05-30 18:26] VITALS: BP 141/94; PULSE 84; RESP 18; TEMP 37.6; O2SAT 97
[2023-05-30 19:10] LABS: Influenza A PCR NEGATIVE (Negative); Influenza B PCR NEGATIVE (Negative); Resp Syncy Virus RNA Qual PCR NEGATIVE (Negative); SARS COV2 PCR INHOUSE NEGATIVE (Negative)
--- NOTE | 2023-05-30 19:34 | PC.NURSE ---
medicated per MAR.
[2023-05-30 19:35] VITALS: BP 150/98; PULSE 81; RESP 18; TEMP 35.9; O2SAT 100
== END 2023-05-30 19:36 | disposition home or self-care (01) ==
PROVIDERS: Physician Assistant; Emergency Provider Emergency Medicine Emergency Medical Services
DX: K52.9 Noninfective gastroenteritis and colitis, unspecified (principal); R11.2 Nausea with vomiting, unspecified; R53.1 Weakness; R51.9 Headache, unspecified; M79.10 Myalgia, unspecified site; Z03.818 Encounter for observation for suspected exposure to other biological agents ruled out; Z79.899 Other long term (current) drug therapy
CPT/HCPCS: 0241U; 36415; 80048; 80076; 83690; 83735; 85025; 99282; 99283

== ENCOUNTER 2023-08-11 07:50 | Outpatient (AMB) | payer BC, SELFPAY ==
--- NOTE | 2023-08-11 07:52 | A.OFFPC_ITS ---
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 Recent EGD done in March 2022 showing chronic inactive gastritis biopsies done negative for H pylori. His GERD symptoms have been much better since he has been making dietary modifications and has stopped drinking alcohol. Concern--> he reports having lower back pain that intermittently radiates down bilateral lower extremities. Denies having he really physically demanding job. He admits to not being as physically active as he wants to be. He also reports having some pain in his mid left sternum that gets worse to palpation and stretching of his torso. Vaccines: Up-to-date with tetanus, declines COVID and flu vaccines. [facility] Medical History History of COVID-19 Vomiting GERD (gastroesophageal reflux disease) Gastritis Surgical History History of esophagogastroduodenoscopy (EGD) Family History Father No problems noted. Mother GERD (gastroesophageal reflux disease) Social History Housing: Apartment Alcohol intake: former Patient Tobacco Use Status: Never used Tobacco e-Cigarette/Vaping Use: Former Use Second Hand Smoke Exposure: No Substance Use Type: Marijuana service: No Current occupational status: employed Current occupation: [employer] Current occupational exposures/hazards: No Cognitive needs: No Hearing needs: No Vision needs: No Questionnaire PHQ-9 Over the last 2 weeks, how often have you been bothered by any of the following problems? 1. Little interest or pleasure in doing things: not at all 2. Feeling down, depressed, or hopeless: not at all 3. Trouble falling or staying asleep, or sleeping too much: not at all 4. Feeling tired or having little energy: not at all 5. Poor appetite or overeating: not at all 6. Feeling bad about yourself - or that you are a failure or have let yourself or your family down: not at all 7. Trouble concentrating on things, such as reading the newspaper or watching television: not at all 8. Moving or speaking so slowly that other people could have noticed. Or the opposite - being so fidgety or restless that you have been moving around a lot more than usual: not at all 9. Thoughts that you would be better off or of hurting yourself in some way: not at all Total score: 0 Depression Screening Interpretation: Negative Depression Screening Done: Yes 87327 - PHQ-9 Billing: Yes Source: Developed by Drs. Rhett Parkinson, Laina Ford, Mynor Estrada and colleagues, with an educational isha from [employer]. Thrive Questionnaire Date Thrive assessed: 08/11/23 I am a: Patient What is your living situation today?: I have a steady place to live Within the past 12 months, did the food you bought not last and you didn't have the money to get more?: Never true Within the past 12 months, did you worry whether your food would run out before you got money to buy more?: Never true Do you have trouble paying for medicines?: No Do you have trouble getting transportation to medical appointments?: No Do you have trouble paying your heating and electricity bill?: No Do you have trouble taking care of your child, family member or friend?: No Do you have trouble with day-to-day activities such as bathing, preparing meals, shopping, managing finances, etc.?: No Are you currently unemployed and looking for a job?: No Are you interested in more education?: No Please select the resources that you would like help with: None Currently or been in a relationship where the following occur: no concerns reported THRIVE Score: 0 AUDIT C Alcohol Use Questionnaire (AUDIT-C) 1. How often do you have a drink containing alcohol?: Never Total Score: 0 JAIMIE-7 AMB Questionnaire JAIMIE-7 Date JAIMIE - 7 assessed: 08/11/23 Feeling nervous, anxious, or on edge: 0 = Not at all Not being able to stop or control worryin = Not at all Worrying too much about different things: 0 = Not at all Trouble relaxin = Not at all Being so restless that it is hard to sit still: 0 = Not at all Becoming easily annoyed or irritable: 0 = Not at all Feeling afraid as if something awful might happen: 0 = Not at all Total JAIMIE-7 score (0-4 normal; 5-9 mild; 10-14 moderate; 15-21 severe): 0 Source: Developed by Drs. Rhett Parkinson, Laina Ford, Mynor Estrada and colleagues, with an educational isha from [employer]. JAIMIE-7 Assessment Billing JAIMIE-7 Assessment Tool: JAIMIE-7 Assessment 63514 Review of Systems Const Denies body aches, Denies chills, Denies excessive sweating, Denies fatigue, Denies fever(s) and Denies headache(s) Eyes Denies blurry vision ENT Denies dysphagia, Denies vertigo, Denies dizziness, Denies headache(s), Denies hearing loss and Denies tinnitus Card Denies chest pain, Denies chest pain with activity, Denies syncope, Denies irr egular heart rhythm and Denies dyspnea Resp Denies chest congestion, Denies cough, Denies hemoptysis, Denies dyspnea and Denies wheezing GI Denies abdominal pain, Denies melena, Denies hematochezia, Denies coffee ground emesis, Denies dysphagia, Denies diarrhea, Denies nausea and Denies vomiting Denies difficulty urinating, Denies dysuria, Denies urinary frequency, Denies urinary hesitancy and Denies urinary urgency Musc Reports back pain, Denies arthralgias, Denies limited range of motion, Denies muscle cramps and Denies muscle weakness Skin/Breast Denies rash and Denies skin ulcer Neuro Denies Abnormal speech present, Denies confusion, Denies vertigo, Denies dizziness, Denies syncope, Denies headache(s), Denies memory loss and Denies seizure-like activity Psych Denies anxiety, Denies confusion, Denies depression, Denies memory loss, Denies panic attacks and Denies paranoia Endo Denies excessive sweating, Denies fatigue, Denies flushing, Denies polydipsia and Denies polyuria Aller/Immun Denies wheezing Physical exam (Primary Care) Vital Signs: Last Vital Signs Pulse 72 08/11/23 07:56 BP 114/80 08/11/23 07:56 Pulse Ox 98 08/11/23 07:56 Oxygen Delivery Method Room Air 08/11/23 07:56 BMI result Body Mass Index 23.4 Tobacco/Smoking Status: Tobacco use Status Tobacco use date assessed 08/11/23 08/11/23 07:59 Patient Tobacco Use Status Never used Tobacco 08/11/23 07:59 e-Cigarette/Vaping Use Former Use 08/11/23 07:59 PHQ-9: PHQ-9 Score PHQ-9: Total score 0 08/11/23 07:59 Depression Screening Interpretation: Negative Thrive Assessment: Date of Thrive Assessment Date Thrive assessed 08/11/23 08/11/23 07:59 Currently or been in a relationship where the following occur: no concerns reported Const General: cooperative, comfortable, no acute distress, alert and awake; No confusion Orientation/consciousness: oriented to person, oriented to place, patient oriented x3 and No confusion HENMT Head: Yes normocephalic Ears: external ears normal and TM's normal bilaterally Face and sinus: No sinus tenderness Mouth: Normal oral and palatal mucosa present and tongue normal Teeth and gingiva: dentition normal and gingiva normal Throat: Yes posterior oropharynx normal, Yes tonsils normal and Yes uvula midline Eyes Conjunctivae: conjunctivae normal Sclerae: sclerae normal Pupils: Equal, round and reactive pupils present EOM: EOMs intact bilaterally Direct Ophthalmoscopy: No no photophobia Neck Neck: Yes no lymphadenopathy, No tender and Yes no JVD Thyroid: Thyroid normal Carotids: no bruits Chest Chest palpation & inspection: no tenderness Resp Effort & Inspection: normal respiratory effort, no audible wheezes, not labored and no stridor Auscultation: no crackles, no rales, no rhonchi and no wheezes Cardio Jugular venous distension: no JVD Rate: regular rate, not bradycardic and not tachycardic Rhythm: regular rhythm Bruits: no carotid bruits Peripheral pulses: Peripheral pulses 2+ throughout GI Inspection: Yes normal to inspection, No abdominal wall ecchymosis and No visible herniation Palpation (GI): Soft to palpation, nontender, no guarding, not rigid and No hepatosplenomegaly present Auscultation: normoactive bowel sounds General: Yes no CVA tenderness Back/Spine/Pelvis Back: no CVA tenderness and No back tenderness Cervical Spine: cervical ROM normal Thoracic/Lumbar Spine: thoracic and lumbar spine normal to inspection, straight leg raise negative bilaterally, No thoraco-lumbar ROM limited and No lumbar spinal tenderness Skin Lesions: no lesions Rashes: no rashes Wounds: no wounds Neuro General: oriented to person, oriented to place, patient oriented x3, CN's II-XI intact bilaterally and No confusion Cranial nerves: Yes Equal, round and reactive pupils present and Yes Normal accommodation reflex present Cognition (Neuro): normal cognition Speech: No Abnormal speech present Gait exam (Neuro): Normal gait present Motor exam (neuro): 5/5 motor strength present throughout Extrem Right upper extremity: full ROM; no cyanosis Left upper extremity: full ROM; no cyanosis Right lower extremity: no edema Left lower extremity: no edema Psych Appearance: grossly normal Mental Status: mental status grossly normal Affect: normal affect Attitude: cooperative Thought process: Normal thought process present Assessment and Plan Assessment & Plan (1) Annual physical exam: Code(s): Z00.00 - Encounter for general adult medical examination without abnormal findings (2) Gastroesophageal reflux disease: Code(s): K21.9 - Gastro-esophageal reflux disease without esophagitis Qualifiers: Esophagitis presence: esophagitis presence not specified Qualified Code(s): K21.9 - Gastro-esophageal reflux disease without esophagitis Plan: Has been much improved since making dietary modifications. Not using omeprazole at. (3) Low back pain: Code(s): M54.50 - Low back pain, unspecified Qualifiers: Chronicity: chronic Back pain laterality: bilateral Sciatica presence: with sciatica Sciatica laterality: bilateral sciatica Qualified Code(s): M54.42 - Lumbago with sciatica, left side; M54.41 - Lumbago with sciatica, right side; G89.29 - Other chronic pain Plan: Having intermittent low back pain over the last several years. He reports some radiculopathy symptoms at times down either lower extremity. Will likely benefit from formal physical therapy. Will get x-rays of his lower back. (4) Sternum pain: Code(s): R07.89 - Other chest pain Plan: Having localized sternal pain to palpation. Likely musculoskeletal. Will get x-ray of the sternum to evaluate for any bone lesion Orders: Orders XR sternum min 2V Today R07.89 - Other chest pain PT Evaluation and Treatment Today G89.29 - Other chronic pain, M54.41 - Lumbago with sciatica, right side, M54.42 - Lumbago with sciatica, left side XR lumbar spine 2-3V Today G89.29 - Other chronic pain, M54.41 - Lumbago with sciatica, right side, M54.42 - Lumbago with sciatica, left side Comprehensive [place]. Panel Fast Today Z13.1 - Encounter for screening for diabetes mellitus XR thoracic spine 3V Today M79.18 - Myalgia, other site Medications: New acetaminophen ER (Tylenol Arthritis Pain) 650 mg PO Q12H 30 days 60 tabs 3RF G89.29 - Other chronic pain, M19.90 - Unspecified osteoarthritis, unspecified site, M54.41 - Lumbago with sciatica, right side, M54.42 - Lumbago with sciatic a, left side Coding Level of Care Code Est Pt Prev Care 18-39y([id number]) Diagnoses Annual physical exam Z00.00 Gastroesophageal reflux disease, unspecified whether esophagitis present K21.9 Esophagitis presence: esophagitis presence not specified Chronic bilateral low back pain with bilateral sciatica M54.42; M54.41; G89.29 Chronicity: chronic Back pain laterality: bilateral Sciatica presence: with sciatica Sciatica laterality: bilateral sciatica Sternum pain R07.89 Additional Codes JAIMIE-7 Assessment Billing - JAIMIE-7 Assessment Tool: JAIMIE-7 Assessment [id number] ([id number])
[2023-08-11 07:56] VITALS: BP 114/80; PULSE 72; O2SAT 98; BMI 23.4
== END 2023-08-11 08:27 | disposition home or self-care (01) ==
PROVIDERS: PCP Physician Assistant; Visit Provider Physician Assistant
DX: Z00.00 Encounter for general adult medical examination without abnormal findings (principal); K21.9 Gastro-esophageal reflux disease without esophagitis; M54.42 Lumbago with sciatica, left side; M54.41 Lumbago with sciatica, right side; G89.29 Other chronic pain; R07.89 Other chest pain
CPT/HCPCS: 99395

== ENCOUNTER 2023-09-21 12:52 | Emergency (ER) | payer BC, SELFPAY ==
[2023-09-21 12:54] VITALS: BP 120/72; PULSE 80; RESP 20; TEMP 37.2; O2SAT 99; BMI 23.4
--- NOTE | 2023-09-21 12:56 | ED_ITS ---
HPI - Back Pain/Injury General Chief Complaint: Back Pain/Injury Stated Complaint: Severe Back Pain No Injury Time Seen by Provider: 09/21/23 14:00 Source: patient Mode of arrival: ambulatory Limitations: physical limitation (Limited walking due to severe pain) History of Present Illness HPI Narrative: 32 year old male with a past history of sciatica and low back pain, presents with a 3 day history of severe lower back pain that radiates to the upper buttocks. Patient states that pain began Thursday (3 days ago) and was mostly on the right side with severe pain when walking. He states that over the last 3 days the pain has been switching from left to right sides over the last couple days and yesterday and this morning the pain was so severe on both sides. The patient states he was at work and the pain was so severe with waking he left and arrived to the ER. Patient states the pain is localized to the mid back and also radiates to his upper left buttocks. He has a history of pain in that area, and denies any injuries or trauma to the back. He states that he has been taking 500mg to 1000mg of extra strength Tylenol to help with the pain, and also applied a lidocaine patch today at home before arriving to the ER. He states that the Tylenol helped mildly with the pain. He denies any radicular or nerve pain and there is no tingling or numbness or muscle weakness noted. He states the muscles in the area feel tight. Denies fever, chest pain or difficulty breathing. Denies urinary incontinence, saddle anaesthesia and radicular/nerve pain. MD elicited complaint: back pain Pertinent past history: prior back pain Timing: intermittent Severity: moderate Quality: sharp and stabbing Location: lumbar spine and sacrum Radiation: buttocks Exacerbating factors: movement, sitting upright and walking Relieving factors: medication Treatments prior to arrival: heat therapy, NSAIDS and other (Lidocaine patch) Related Data Previous Rx's ?Medication ?Instructions ?Recorded acetaminophen 650 mg 650 mg PO Q12H 30 days #60 tabs 08/11/23 tablet,extended release (Tylenol Arthritis Pain) cyclobenzaprine 10 mg tablet 10 mg PO TID PRN muscle spasm #14 09/21/23 tabs ibuprofen 600 mg tablet 600 mg PO Q8H PRN pain #14 tabs 09/21/23 lidocaine 5 % topical patch 1 patch topical DAILY #15 ea 09/21/23 Allergies Allergy/AdvReac Type Severity Reaction Status Date / Time No Known Allergies Allergy Verified 09/21/23 12:58 Review of Systems Review of Systems: Yes all other systems are reviewed and are negative [facility] Past Medical History Medical History History of COVID-19 Vomiting GERD (gastroesophageal reflux disease) Gastritis Surgical History History of esophagogastroduodenoscopy (EGD) Family History Family History Father No problems noted. Mother GERD (gastroesophageal reflux disease) Social History Social History Housing: Apartment Alcohol intake: former Patient Tobacco Use Status: Never used Tobacco e-Cigarette/Vaping Use: Former Use Second Hand Smoke Exposure: No Substance Use Type: Marijuana Advance Directives: No Advance Directives Information Provided: Yes Do you have a plan to hurt others: No Plan service: No Current occupational status: employed Current occupation: [employer] Current occupational exposures/hazards: No Cognitive needs: No Hearing needs: No Vision needs: No Physical Exam Vital Signs: Vital Signs: Last Vital Signs Temp 98.9 F 09/21/23 16:07 Pulse 64 09/21/23 16:07 Resp 18 09/21/23 16:07 BP 100/55 L 09/21/23 16:07 Pulse Ox 99 09/21/23 16:07 O2 Del Method Room Air 09/21/23 16:07 BMI result Body Mass Index 23.4 Appearance: Alert. Oriented X3. No acute distress. HEENT: normal inspection CVS: Normal heart rate and rhythm. Pulses normal. Respiratory: No respiratory distress. Skin: Skin warm and dry. Normal skin color. Normal skin turgor. No rashes. Extremities: No visible abnormalities, strength is intact bilaterally, however is is weakened due to pain on the LLE. ROM is intact bilaterally. Muscular: No midline tenderness or pain, pain is localized to left side of lower lumbar back and radiates to the upper left buttock and there is pain with movement, slight pain with palpitation. Neuro: Oriented X 3. Motor deficit to the left lower extremity due to pain, however strength is intact bilaterally. No sensory deficit. Steady gait Course Course Course Narrative: This is an RME: Additional HPI, ROS, PE not included below will be deferred to primary provider. RME assessment and note performed by: Aliyah Manriquez PA-C This is a 30-kobi-yom-male, with a hx of sciatica, who presents to the ER with a complaint of low back pain x 2 days. Pain does not radiate down into his groin, no saddle anesthesia, no urinary/bowel incontinence/retention. No injury/trauma. Has not taken any medications for pain. Plan: Further ER evaluation needed > Medications Administered Discontinued Medications Generic Name Dose Route Start Last Admin Trade Name Freq PRN Reason Stop Dose Admin Ketorolac Tromethamine 30 mg 09/21/23 14:03 09/21/23 14:21 Ketorolac Tromethamine 30 Mg/Ml Vial IM 09/21/23 14:04 30 mg ONCE ONE Administration Oxycodone HCl 5 mg 09/21/23 14:03 09/21/23 14:21 Oxycodone Hcl Immed Release 5 Mg Tablet PO 09/21/23 14:04 5 mg ONCE ONE Administration Medical Decision Making Medical Decision Making MDM Narrative: 32 year old patient presents to the ER today with severe lower back pain that is radiating to the left upper buttocks. Pateint has a past medical history of sciatic pain. No radiation of the pain to the LE. No red flag symptoms of LBP. Given IM toradol and PO oxycodone in the ER with improvement in his pain. No need for emergent imaging today. Will treat for musculoskeletal back pain with anti-inflammatories, muscle relaxers, Lidoderm patches and have him follow-up with his primary care doctor. We discussed the role of physical therapy and outpatient follow-up, patient expressed understanding and all questions were answered. Differential Diagnosis Differential Diagnoses: The differential diagnosis associated with the presentation includes Inflammatory disorders, malignancy, trauma, osteoporosis, nerve root compression, radiculopathy, plexopathy, degenerative disc disease, disc herniation, spinal stenosis, sacroiliac joint dysfunction, facet joint injury, and less likely infection?like abscess or diskitis External Record Review External record reviewed: Outpatient record and Prior outpatient labs Tests considered The following testing was considered but not selected: xr lumbar spine considered Prescription Management I considered prescription management with: Pain Medication Critical Care Time Critical Care Time Critical Care Time: No Discharge Plan Discharge Clinical Impression: Low back pain Qualifiers: Chronicity: chronic Back pain laterality: bilateral Sciatica presence: with sciatica Sciatica laterality: bilateral sciatica Qualified Code(s): M54.42 - Lumbago with sciatica, left side Patient Disposition: Home, Self-Care Instructions: Low Back Strain (ED), Lower Back Exercises (ED) Additional Instructions: Your pain is most likely due to muscle strain and spasm. No bending, lifting or twisting. Use ice several times per day for 20 minutes at a time for the next 48 hours and then change to heat. Take medications as prescribed to help with pain and discomfort. Also recommend taking 1000 mg of Tylenol every 6-8 hours. Follow up with your Primary Care Doctor this week. If your pain worsens, if you develop new numbness, tingling, weakness, loss of function or incontinence call 911 or come back to the ER right away for evaluation. Prescriptions: New cyclobenzaprine 10 mg tablet 10 mg PO TID PRN (Reason: muscle spasm) Qty: 14 0RF ibuprofen 600 mg tablet 600 mg PO Q8H PRN (Reason: pain) Qty: 14 0RF lidocaine 5 % adhesive patch,medicated 1 patch topical DAILY Qty: 15 0RF Rx Instructions: leave on most painful area for up to 12 hrs No Action acetaminophen [Tylenol Arthritis Pain] 650 mg tablet extended release 650 mg PO Q12H 30 Days Qty: 60 3RF Stand Alone Forms: Work/School Release Interventions: ED Discharge Assessment Last Done: 09/21/23 16:07 Discharge Date/Time: 09/21/23 16:08 Print Language: Nepali
[2023-09-21] MEDS: oxyCODONE HCl Immed Release 5 MG TABLET PO (14:21)
[2023-09-21] MEDS: Ketorolac Tromethamine 30 MG/ML VIAL IM (14:21)
--- NOTE | 2023-09-21 14:30 | PC.NURSE ---
Pt. medicated per MAR. States that back pain was an 8/10 on the pain scale prior to being medicated. Pt. requested warm blanket, and denies other complaints at this time.
[2023-09-21 16:07] VITALS: BP 100/55; PULSE 64; RESP 18; TEMP 37.2; O2SAT 99
== END 2023-09-21 16:08 | disposition home or self-care (01) ==
PROVIDERS: Emergency Provider Emergency Medicine; PCP Physician Assistant
DX: M54.42 Lumbago with sciatica, left side (principal)
CPT/HCPCS: 96372; 99283; 99284; J1885

== ENCOUNTER 2023-09-23 11:28 | Outpatient (AMB) | payer BC, SELFPAY ==
--- NOTE | 2023-09-23 11:40 | MHC.PC.OV ---
Vital Signs 09/23/23 11:44 Height 5 ft 6 in Weight 148 lb BMI 23.9 BP 90/58 L Blood Pressure Location Lt brachial Position Sitting Pulse 82 Pulse Source Pulse Oximeter Pulse Oximetry (%) 98 Oxygen Delivery Method Room Air Intake Visit Reasons: PainOnLowerBack Intake Note: Patient is here to follow-up after a visit the emergency department at [facility] on 09/21/23 FOR Low back pain. Customer Assistance Associate Required: No Accompanied by: Self / Same As Patient Allergies No Known Allergies Allergy (Verified 09/23/23 11:58) Medication List - Last Reconciled 09/23/23 by Sidney Roman PA-C acetaminophen ER (Tylenol Arthritis Pain) 650 mg PO Q12H 30 days cyclobenzaprine 10 mg PO TID PRN ibuprofen 600 mg PO Q8H PRN lidocaine 5% 1 patch topical DAILY Tobacco use date assessed: 08/11/23 Dental Screening Dental Screen Date: 08/11/23 HPI PainOnLowerBack HPI Details Patient is a 32-year-old male here today for an ER visit. Patient is seen at the ER for acute low back pain which seemed to me muscular. Was discharged home with muscle relaxers and ibuprofen and lidocaine patches. He reports his lower back pain has been getting better as he has been more mobile and has lost pain. He reports ibuprofen has been helpful. He took 1 cyclobenzaprine though felt too fatigued. He is now interested in doing physical therapy and getting x-rays of his lower back. [facility] Medical History History of COVID-19 Vomiting GERD (gastroesophageal reflux disease) Gastritis Surgical History History of esophagogastroduodenoscopy (EGD) Family History Father No problems noted. Mother GERD (gastroesophageal reflux disease) Social History Housing: Apartment Alcohol intake: former Patient Tobacco Use Status: Never used Tobacco e-Cigarette/Vaping Use: Former Use Second Hand Smoke Exposure: No Substance Use Type: Marijuana service: No Current occupational status: employed Current occupation: [employer] Current occupational exposures/hazards: No Cognitive needs: No Hearing needs: No Vision needs: No Questionnaire Thrive Questionnaire Date Thrive assessed: 08/11/23 JAIMIE-7 AMB Questionnaire JAIMIE-7 Date JAIMIE - 7 assessed: 08/11/23 Source: Developed by Drs. Rhett Parkinson, Laina Ford, Mynor Estrada and colleagues, with an educational isha from [employer]. Review of Systems Const Denies headache(s) Eyes Denies loss of vision ENT Denies vertigo, Denies dizziness, Denies headache(s) and Denies sore throat Card Denies chest pain, Denies leg edema and Denies lightheadedness Resp Denies cough, Denies hemoptysis and Denies wheezing GI Denies abdominal pain, Denies melena, Denies constipation, Denies diarrhea and Denies vomiting Denies dysuria, Denies urinary frequency and Denies urinary urgency Musc Reports back pain, Denies arthralgias, Denies joint swelling, Denies numbness and Denies tingling Neuro Denies Abnormal speech present, Denies behavioral changes, Denies vertigo, Denies dizziness, Denies headache(s), Denies loss of vision, Denies memory loss, Denies numbness and Denies tingling Psych Denies anxiety, Denies behavioral changes, Denies depression, Denies memory loss and Denies panic attacks Mariano/Lymph Denies easy bleeding and Denies easy bruising Aller/Immun Denies wheezing Physical exam (Primary Care) Vital Signs: Last Vital Signs Pulse 82 09/23/23 11:44 BP 90/58 L 09/23/23 11:44 Pulse Ox 98 09/23/23 11:44 Oxygen Delivery Method Room Air 09/23/23 11:44 BMI result Body Mass Index 23.9 Tobacco/Smoking Status: Tobacco use Status Tobacco use date assessed 08/11/23 09/23/23 11:40 Patient Tobacco Use Status Never used Tobacco 09/23/23 11:40 e-Cigarette/Vaping Use Former Use 09/23/23 11:40 Thrive Assessment: Date of Thrive Assessment Date Thrive assessed 08/11/23 09/23/23 11:40 Const General: healthy appearing, no acute distress, alert and awake Nutritional Appearance: well nourished Orientation/consciousness: oriented to person, oriented to place and oriented to time HENME Ears: TM's normal bilaterally General nose exam: Normal nasal mucous membranes and turbinates present Eyes Conjunctivae: conjunctivae normal Sclerae: sclerae normal Pupils: Equal, round and reactive pupils present Neck Neck: Yes no lymphadenopathy and Yes no JVD Thyroid: Thyroid normal Carotids: no bruits Resp Effort & Inspection: normal respiratory effort and not tachypneic Auscultation: no crackles, no rales, no rhonchi and no wheezes Cardio Rate: regular rate Rhythm: regular rhythm Heart sounds: no murmurs and normal S1 and S2 GI Palpation (GI): Soft to palpation, nontender, no hepatomegaly and no splenomegaly Auscultation: normal bowel sounds Skin General skin exam: no rashes or lesions noted and dry skin Neuro General: oriented to person, oriented to place and oriented to time Cranial nerves: Yes Equal, round and reactive pupils present Speech: No Abnormal speech present Gait exam (Neuro): Normal gait present Motor exam (neuro): no tremor noted Extrem Right upper extremity: full ROM Left upper extremity: full ROM Right lower extremity: full ROM; no edema Left lower extremity: full ROM; no edema Psych Mental Status: mental status grossly normal Speech and movement: Normal speech and movement present Affect: normal affect Attitude: cooperative Thought process: Normal thought process present Assessment and Plan Assessment & Plan (1) Lumbar radiculopathy: Code(s): M54.16 - Radiculopathy, lumbar region Plan: Patient continues to have intermittent episodes of lower back and pelvis pain. He reports ibuprofen has been helpful. He is now willing to do physical therapy, will place new order Orders: Orders PT Evaluation and Treatment Today M54.16 - Radiculopathy, lumbar region Coding Level of Care Code Est Pt Level 3 (45339) Diagnoses Lumbar radiculopathy M54.16
[2023-09-23 11:44] VITALS: BP 90/58; PULSE 82; O2SAT 98; BMI 23.9
== END 2023-09-23 12:38 | disposition home or self-care (01) ==
PROVIDERS: Visit Provider Physician Assistant
DX: M54.16 Radiculopathy, lumbar region (principal)
CPT/HCPCS: 99213

== ENCOUNTER 2023-09-23 12:14 | Outpatient (REF) | payer BC, SELFPAY ==
--- NOTE | ~2023-09-23 | XR_ITS ---
EXAMINATION: XR LUMBAR SPINE, THORACIC SPINE, STERNUM CLINICAL INFORMATION: Lumbago left side, pain in right sternum between scapula and lower back with bilateral sciatica. COMPARISON: CT abdomen and pelvis 05/13/2021 chest 12/30/2016, thoracic spine 12/04/2014, lumbar spine 12/04/2014. TECHNIQUE: 3 views lumbar spine, 3 views thoracic spine, 2 views sternum. Limited visualization due to overlying bony and soft tissue structures. FINDINGS: Thoracic Spine: Minimal rightward curvature of the thoracic spine. Minimal degenerative changes in the lower thoracic spine. Sternum: No gross displaced fracture of the sternum appreciated, however, visualization is limited due to overlying structures. Lumbar Spine: Degenerative changes with sclerosis in the bilateral sacroiliac joints, left greater than right. Facet arthritis in the lower lumbar spine. Mild multilevel lumbar spondylosis with mild loss of disc space height at L4-L5. XR/XR thoracic spine 3V IMPRESSION: 1. Mild degenerative changes in the lower thoracic spine. 2. Mild multilevel lumbar spondylosis with mild loss of disc space height at L4-L5. 3. Facet arthritis in the lower lumbar spine. 4. Degenerative changes with sclerosis in the bilateral sacroiliac joints, left greater than right. 5. No gross displaced fracture of the sternum appreciated, however, visualization is limited due to overlying structures. 6. CT scan or MRI could be considered for further evaluation based on the clinical assessment.
--- NOTE | ~2023-09-23 | XR_ITS ---
EXAMINATION: XR LUMBAR SPINE, THORACIC SPINE, STERNUM CLINICAL INFORMATION: Lumbago left side, pain in right sternum between scapula and lower back with bilateral sciatica. COMPARISON: CT abdomen and pelvis 05/13/2021 chest 12/30/2016, thoracic spine 12/04/2014, lumbar spine 12/04/2014. TECHNIQUE: 3 views lumbar spine, 3 views thoracic spine, 2 views sternum. Limited visualization due to overlying bony and soft tissue structures. FINDINGS: Thoracic Spine: Minimal rightward curvature of the thoracic spine. Minimal degenerative changes in the lower thoracic spine. Sternum: No gross displaced fracture of the sternum appreciated, however, visualization is limited due to overlying structures. Lumbar Spine: Degenerative changes with sclerosis in the bilateral sacroiliac joints, left greater than right. Facet arthritis in the lower lumbar spine. Mild multilevel lumbar spondylosis with mild loss of disc space height at L4-L5. XR/XR sternum min 2V IMPRESSION: 1. Mild degenerative changes in the lower thoracic spine. 2. Mild multilevel lumbar spondylosis with mild loss of disc space height at L4-L5. 3. Facet arthritis in the lower lumbar spine. 4. Degenerative changes with sclerosis in the bilateral sacroiliac joints, left greater than right. 5. No gross displaced fracture of the sternum appreciated, however, visualization is limited due to overlying structures. 6. CT scan or MRI could be considered for further evaluation based on the clinical assessment.
--- NOTE | ~2023-09-23 | XR_ITS ---
EXAMINATION: XR LUMBAR SPINE, THORACIC SPINE, STERNUM CLINICAL INFORMATION: Lumbago left side, pain in right sternum between scapula and lower back with bilateral sciatica. COMPARISON: CT abdomen and pelvis 05/13/2021 chest 12/30/2016, thoracic spine 12/04/2014, lumbar spine 12/04/2014. TECHNIQUE: 3 views lumbar spine, 3 views thoracic spine, 2 views sternum. Limited visualization due to overlying bony and soft tissue structures. FINDINGS: Thoracic Spine: Minimal rightward curvature of the thoracic spine. Minimal degenerative changes in the lower thoracic spine. Sternum: No gross displaced fracture of the sternum appreciated, however, visualization is limited due to overlying structures. Lumbar Spine: Degenerative changes with sclerosis in the bilateral sacroiliac joints, left greater than right. Facet arthritis in the lower lumbar spine. Mild multilevel lumbar spondylosis with mild loss of disc space height at L4-L5. XR/XR lumbar spine 2-3V IMPRESSION: 1. Mild degenerative changes in the lower thoracic spine. 2. Mild multilevel lumbar spondylosis with mild loss of disc space height at L4-L5. 3. Facet arthritis in the lower lumbar spine. 4. Degenerative changes with sclerosis in the bilateral sacroiliac joints, left greater than right. 5. No gross displaced fracture of the sternum appreciated, however, visualization is limited due to overlying structures. 6. CT scan or MRI could be considered for further evaluation based on the clinical assessment.
== END 2023-09-23 12:15 | disposition home or self-care (01) ==
LOC: HO.XRAY 12:14
PROVIDERS: PCP Physician Assistant; Visit Provider Physician Assistant
DX: R07.89 Other chest pain (principal); M54.42 Lumbago with sciatica, left side; M54.41 Lumbago with sciatica, right side; G89.29 Other chronic pain; M79.18 Myalgia, other site
CPT/HCPCS: 71120; 72072; 72100

== ENCOUNTER 2023-11-05 08:56 | Outpatient (AMB) | payer BC, SELFPAY ==
[2023-11-05 09:05] VITALS: BP 121/72; PULSE 71; O2SAT 99; BMI 22.8
--- NOTE | 2023-11-05 09:05 | MHC.OFFVIS ---
Vital Signs 11/05/23 09:05 Height 5 ft 6 in Weight 141 lb BMI 22.8 BP 121/72 Blood Pressure Location Rt brachial Position Sitting Pulse 71 Pulse Source Pulse Oximeter Pulse Oximetry (%) 99 Oxygen Delivery Method Room Air Intake Visit Reasons: Radiculopathy, lumbar region Allergies No Known Allergies Allergy (Verified 11/05/23 09:06) Medication List - Last Reconciled 11/05/23 by Lenore Leong acetaminophen ER (Tylenol Arthritis Pain) 650 mg PO Q12H 30 days cyclobenzaprine 10 mg PO TID PRN ibuprofen 600 mg PO Q8H PRN lidocaine 5% 1 patch topical DAILY HPI Comments Details: Giorgio is a very pleasant 33-year-old male who presents to the office today for evaluation management of his chronic lower back pain. Endorses several years of midline lower back pain without radiation down either lower extremity. Denies inciting injury, trauma, accident Reports that at times the pain will radiate down to his buttocks but does not radiate lower. Recently evaluated in the emergency room, x-rays were performed. These were reviewed, results as per below Prescribed cyclobenzaprine but did not like how they made him feel so he has not been taking them. Has been taking Tylenol Motrin sparingly so was not able to detail if these help his pain. Lidocaine patches did not provide any relief PT has been ordered by his primary care physician but patient has not started He has not tried chiropractor, acupuncture, massage or previous attempts at injections Denies red flag symptoms including new loss of bowel, bladder or saddle anesthesia Pain is worse with he extension and twisting Rated today as 7/10, intermittent and worse in the night Muscle damage condition is described as aching, stabbing, sharp, spasming As needed impacting patient's enjoyment of life, general activity, sleep, recreational activities Denies implantable devices, pacemaker defibrillator. [facility] Medical History History of COVID-19 Vomiting GERD (gastroesophageal reflux disease) Gastritis Surgical History History of esophagogastroduodenoscopy (EGD) Family History Father No problems noted. Mother GERD (gastroesophageal reflux disease) Social History Housing: Apartment Alcohol intake: former Patient Tobacco Use Status: Never used Tobacco e-Cigarette/Vaping Use: Former Use Second Hand Smoke Exposure: No Substance Use Type: Marijuana service: No Current occupational status: employed Current occupation: [employer] Current occupational exposures/hazards: No Cognitive needs: No Hearing needs: No Vision needs: No Review of Systems Const All systems reviewed & are unremarkable except as noted in HPI and below Physical Exam Vital Signs: Last Vital Signs Pulse 71 11/05/23 09:05 BP 121/72 11/05/23 09:05 Pulse Ox 99 11/05/23 09:05 Oxygen Delivery Method Room Air 11/05/23 09:05 BMI result Body Mass Index 22.8 General: awake, alert, oriented. Answers questions appropriately. Fully engaged in examination. Skin: warm, dry, intact HEENT: Normocephalic. Hearing intact. Cardiac: External chest normal in appearance. Respiratory: No cough, audible wheezing or stridor. Abdomen: without gross distension. MS: No obvious swelling or deformities. Able to stand on bilateral tiptoes and bilateral heels.? Able to transition from sit to stand unassisted. Ambulates with bilaterally normal heel strike and toe off Full lumbar range of motion, pain with extension Bilateral lower extremity strength 5/5 SLR negative bilaterally Facet loading positive Nontender over bilateral PSIS [place] negative bilaterally Tenderness to palpation midline lumbar vertebrae and lumbar paraspinal muscles Neurological: Oriented to person, place, time and situation. Thought process intact. No gait abnormalities appreciated. Psychiatric: Appropriate mood and affect. Good judgment and insight. Results Reviewed Results Reviewed: 09/23/23 XR/XR lumbar spine 2-3V COMPARISON: CT abdomen and pelvis 05/13/2021 chest 12/30/2016, thoracic spine 12/04/2014, lumbar spine 12/04/2014. TECHNIQUE: 3 views lumbar spine, 3 views thoracic spine, 2 views sternum. Limited visualization due to overlying bony and soft tissue structures. FINDINGS: Thoracic Spine: Minimal rightward curvature of the thoracic spine. Minimal degenerative changes in the lower thoracic spine. Sternum: No gross displaced fracture of the sternum appreciated, however, visualization is limited due to overlying structures. Lumbar Spine: Degenerative changes with sclerosis in the bilateral sacroiliac joints, left greater than right. Facet arthritis in the lower lumbar spine. Mild multilevel lumbar spondylosis with mild loss of disc space height at L4-L5. IMPRESSION: 1. Mild degenerative changes in the lower thoracic spine. 2. Mild multilevel lumbar spondylosis with mild loss of disc space height at L4-L5. 3. Facet arthritis in the lower lumbar spine. 4. Degenerative changes with sclerosis in the bilateral sacroiliac joints, left greater than right. 5. No gross displaced fracture of the sternum appreciated, however, visualization is limited due to overlying structures. Assessment & Plan Assessment & Plan (1) Myofascial pain syndrome of thoracic spine: Code(s): M79.18 - Myalgia, other site Category: Medical (2) Lumbar spondylosis: Code(s): M47.816 - Spondylosis without myelopathy or radiculopathy, lumbar region Category: Medical Plan Order placed for PT eval and treat Referral to chiropractor per patient request Methocarbamol 500 mg p.o. t.i.d. as needed, patient advised on cautions for use. Discontinue cyclobenzaprine prior to take this medication. Diclofenac 50 mg p.o. b.i.d.. Patient advised on cautions for use Discussed options for interventional treatment, if no improvement with conservative therapy will plan for fluoroscopy guided diagnostic bilateral L3-L4 DR L5 medial branch blocks with local anesthetic. All questions and concerns were answered, patient agrees to the plan. Follow up after PT/chiropractor, sooner if needed Orders: Orders PT Evaluation and Treatment Today M47.816 - Spondylosis without myelopathy or radiculopathy, lumbar region, M79.18 - Myalgia, other site Referrals Chiropractic Referral G89.29 - Other chronic pain, M47.816 - Spondylosis without myelopathy or radiculopathy, lumbar region, M54.41 - Lumbago with sciatica, right side, M54.42 - Lumbago with sciatica, left side, M79.18 - Myalgia, other site Medications: New methocarbamol Discontinue use of Cyclobenzaprine No driving while taking this medication. Do no take with alcohol or other [employer] Depressants 500 mg PO TID PRN 90 tabs 1RF muscle spasm diclofenac potassium Do not take with any other [id number] nonsteroidal anti-inflammatory medications. Take with food. 50 mg PO BID 60 tabs 0RF Discontinued ibuprofen Discontinued Reason: Doctor's Order 600 mg PO Q8H PRN 14 tabs 0RF pain cyclobenzaprine Discontinued Reason: Doctor's Order 10 mg PO TID PRN 14 tabs 0RF muscle spasm Coding Level of Care Code New Pt Level 4 (55450) Complex EM visit Add On G2211 Diagnoses Myofascial pain syndrome of thoracic spine M79.18 Lumbar spondylosis M47.816
== END 2023-11-05 09:29 | disposition home or self-care (01) ==
PROVIDERS: PCP Physician Assistant; Visit Provider Registered Nurse Emergency
DX: M79.18 Myalgia, other site (principal); M47.816 Spondylosis without myelopathy or radiculopathy, lumbar region
CPT/HCPCS: 99204

== ENCOUNTER → 2023-11-05 08:56 | Outpatient (BNVA) | payer BC, SELFPAY | PROVIDERS: PCP Physician Assistant; Visit Provider Registered Nurse Emergency ==

== ENCOUNTER 2024-01-28 15:52 | Outpatient (RCR) | payer BC, SELFPAY ==
--- NOTE | 2023-12-22 17:57 | MHC.PT.EP ---
[facility] [place] Office [place] [facility] [place] Office [address] [phone] F: [phone] F: [phone] F: [phone] F: [phone] Physical Therapy Plan of Care Date of Evaluation: 12/22/23 Date of Surgery: n/a Diagnosis: Myalgia, other site Spondylosis without myelopathy or radiculopathy, lumbar region Myofascial pain sndrome of thoracic spine *Lumbar spondylosis Assessment: Pt is a pleasant and motivated 33yo M who presents to PT with low back pain with intermittent radicular symptoms into B glutes. He presents to PT with current impairments in pain, decreased ROM, posterior chain tightness, soft tissue restrictions, and impaired posture. He is limited functionally by bending, twisting, prolonged sitting, prolonged standing, and sleeping. He is a good candidate for skilled PT in order to address current impairments to facilitate return to PLOF. 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 Manual therapy to restore motion and function. Therapeutic exercise to improve strength and flexibility. Neuromuscular re-education for posture and balance. Therapeutic activities to return to functional activities of daily living. Electronically signed by: Mahsa Levine, PT, DPT Please sign and return to therapist. Thank you for your referral.
--- NOTE | 2024-02-04 10:30 | MHC.PT.DC ---
[facility] [place] Office [place] Office [place] Office [address] Jarvis Gaines [address] [phone] F: [phone] F: [phone] F: [phone] F: [phone] Physical Therapy Discharge Report Diagnosis: Myalgia, other site Spondylosis without myelopathy or radiculopathy, lumbar region Myofascial pain syndrome of thoracic spine *Lumbar spondylosis Date of Surgery: n/a Date of Evaluation: 12/22/23 Date of Discharge: 02/04/24 Treatments to Date: 9 Cancellations to Date: No Shows to Date: Discharge Status: Improved Function Independent with HEP Discharge Summary: Pt was seen for PT from 12/22/23-01/28/24. His last attended and scheduled appointment was 01/28/24. He made progress toward his goals throughout PT POC. He demonstrated independence with HEP throughout sessions. He was D/C to HEP. We discussed the importance of proper body mechanics and performing HEP consistently. I provided pt with printed copy of HEP at last session Electronically signed by: Mahsa Levine, PT, DPT Please sign and return to therapist. Thank you for your referral.
== END 2024-02-04 10:30 | disposition home or self-care (01) ==
LOC: HO.PT 15:52
PROVIDERS: PCP Physician Assistant; Visit Provider Registered Nurse Emergency
DX: M79.18 Myalgia, other site (principal); M47.816 Spondylosis without myelopathy or radiculopathy, lumbar region
CPT/HCPCS: 97110; 97140; 97161; 97530